=== PATIENT | male | born 1985 | race African-American/Black ===

== ENCOUNTER 2021-04-11 04:44 | Emergency (ER) | payer BC ==
[2021-04-11] MEDS ORDERED: Sodium Chloride 0.9% 1,000 ML ONE (05:18)
[2021-04-11] MEDS ORDERED: Pantoprazole 40 MG VIAL ONE (05:18)
[2021-04-11 05:25] LABS: Prothrombin Time 13.7 sec (12.0-14.7)
[2021-04-11 05:26] LABS: PTT 28.9 sec (22.9-36.1)
[2021-04-11 05:33] LABS: Hemoglobin 12.9 g/dL (14.0-18.0); Red Blood Cell (RBC) Count 3.83 mill/uL (4.70-6.10); White Blood Cell (WBC) Count 7.2 thou/uL (4.8-10.8)
[2021-04-11 05:34] LABS: #Neutrophils 3.9 thou/uL (1.40-6.50); %Basophils 1.3 % (0.0-1.0); %Eosinophils 1.3 % (0.0-10.0); %Lymphocytes 36.5 % (21.0-51.0); %Monocytes 6.3 % (0.0-10.0); %Neutrophils 54.7 % (42.0-75.0); ALT (SGPT) 11 U/L (8-55); AST (SGOT) 14 U/L (5-34); Albumin 3.8 g/dL (3.5-5.0); Alkaline Phosphatase 69 U/L (40-110); Anion Gap 14 mmol/L (10-20); BUN (Urea Nitrogen) 27 mg/dL (8.9-20.6); Bilirubin, Total 0.4 mg/dL (0.2-1.2); Calc. Creatinine Clearance 0 mL/min (70-130); Carbon Dioxide 21 mmol/L (22-29); Chloride 110 mmol/L (98-107); Globulin 2.8 g/dL (2.4-3.5); Glucose 122 mg/dL (70-105); Lipase 16 U/L (8-78); Manual Diff?? NO; Mean Corpuscular HGB CONC 33.2 g/dL (32.0-36.0); Mean Corpuscular Hemoglobin 33.6 pg (27.0-31.0); Mean Platelet Volume 12.1 fL (7.4-10.4); Platelet Count 166 thou/uL (130-400); Potassium 4.4 mmol/L (3.5-5.1); Protein, Total 6.6 g/dL (6.0-8.3); RBC Distribution Width 13.3 % (11.5-14.5); Sodium 141 mmol/L (136-145)
[2021-04-11 05:35] LABS: #Basophils 0.1 thou/uL (0.0-0.2); #Lymphocytes 2.6 thou/uL (1.20-3.40); #Monocytes 0.4 thou/uL (0.11-0.59); Macrocytosis SLIGHT = 6-15 cells (100X) (0-5/hpf); Platelet Morphology Comment Appears Adequate
[2021-04-11 06:04] LABS: SARS-CoV-2 NAA Rapid Test Not Detected (NotDetected)
[2021-04-11] MEDS ORDERED: Dextrose 5 %-0.45 % NaCl 1,000 ML ONE (06:11)
== END 2021-04-11 08:27 | disposition short-term general hospital (02) ==
LOC: NAV ERS 04:44
DX: K92.1 Melena (principal); I10 Essential (primary) hypertension; E66.9 Obesity, unspecified; Z68.45 Body mass index [BMI] 70 or greater, adult; Z20.822 Contact with and (suspected) exposure to COVID-19
CPT/HCPCS: 80053; 82274; 83605; 83690; 85025; 85610; 85730; 86850; 86900; 86901; 96374; C9113; J7042; J7050; U0002